=== PATIENT | female | born 1995 | race Caucasian/White ===

== ENCOUNTER 2016-08-16 14:14 | Emergency (ER) | payer MEDICAID ==
--- NOTE | 2016-08-16 14:57 | ER Document Report ---
ED Medical Screen (RME) - General Chief Complaint: Vaginal Bleeding Stated Complaint: VAGINAL BLEEDING Time Seen by Provider: 08/16/16 14:43 Notes: 21-year-old female presenting to the emergency department for some vaginal bleeding. Patient is and her last menstrual period was 07/04/2016. Patient has not had an ultrasound confirming her yet because her insurance does not start until September 10. Patient states that she had some very red blood and yesterday she had some abdominal cramping. Patient states she went through about 4 pads but did not completely soak them. Patient denies any fever or dysuria. Patient is and has a history of asthma. I have greeted and performed a rapid initial assessment of this patient. A comprehensive ED assessment and evaluation of the patient, analysis of test results and completion of the medical decision making process will be conducted by additional ED providers. TRAVEL OUTSIDE OF THE [place] IN LAST 30 DAYS: No - Related Data Allergies/Adverse Reactions: No Known Allergies Allergy (Verified 08/16/16 14:34) Past Medical History Pulmonary Medical History: Reports: Hx Asthma Renal/ Medical History: Denies: Hx Peritoneal Dialysis - Immunizations Immunizations up to date: Yes Hx Diphtheria, Pertussis, Tetanus Vaccination: Yes Physical Exam - Notes Notes: GENERAL: Alert, interacts well. No acute distress. LUNGS: Clear to auscultation bilaterally, no wheezes, rales, or rhonchi. No respiratory distress. HEART: Regular rate and rhythm. No murmurs, gallops, or rubs. ABDOMEN: Soft, non-tender. Course - Laboratory Result Diagrams: 08/16/16 15:00 Laboratory results interpreted by me: 08/16/16 08/16/16 15:00 15:00 Beta HCG, Quant 1084.40 H Urine Protein 30 H Urine Blood LARGE H Ur Leukocyte Esterase TRACE H Scribe Documentation - Scribe Written by Layne:: Layne Chapin, 08/16/2016 15:00 acting as scribe for :: Oren
[2016-08-16 15:14] LABS: ABSOLUTE BASOPHILS # (AUTO) 0.1 10^3/uL (0.0-0.2); ABSOLUTE EOSINOPHILS # (AUTO) 0.1 10^3/uL (0.0-0.6); ABSOLUTE LYMPHOCYTES (AUTO) 1.9 10^3/uL (0.5-4.7); ABSOLUTE MONOCYTES (AUTO) 0.6 10^3/uL (0.1-1.4); BASOPHILS % (AUTO) 0.8 % (0-2); HEMATOCRIT 43.4 % (36.0-47.0); HEMOGLOBIN 14.2 g/dL (12.0-15.5); HGB HCT DIFFERENCE -0.8; LYMPHOCYTES % (AUTO) 24.9 % (13-45); MEAN CORPUSCULAR HEMOGLOBIN 29.9 pg (27.0-33.4); MEAN CORPUSCULAR HGB CONC 32.8 g/dL (32.0-36.0); MEAN CORPUSCULAR VOLUME 91 fl (80-97); MONOCYTES % (AUTO) 7.2 % (3-13); RED BLOOD COUNT 4.76 10^6/uL (3.72-5.28); RED CELL DISTRIBUTION WIDTH 12.8 % (11.5-14.0); SEGMENTED NEUTROPHILS % (AUTO) 65.1 % (42-78); WHITE BLOOD COUNT 7.7 10^3/uL (4.0-10.5)
[2016-08-16 15:21] LABS: AMORPHOUS SEDIMENT,URINE 1+ /HPF; APPEARANCE,URINE TURBID; BILIRUBIN,URINE NEGATIVE (NEGATIVE); GLUCOSE, URINE NEGATIVE (NEGATIVE); KETONES,URINE NEGATIVE (NEGATIVE); LEUKOCYTE ESTERASE,URINE TRACE (NEGATIVE); NITRITE,URINE NEGATIVE (NEGATIVE); PROTEIN,URINE 30 mg/dL (NEGATIVE); URINE SPECIFIC GRAVITY 1.021; UROBILINOGEN,URINE NEGATIVE mg/dL (<2.0)
--- NOTE | 2016-08-16 16:40 | ER Document Report ---
ED GI/ - General Mode of Arrival: Ambulatory Information source: Patient TRAVEL OUTSIDE OF THE [place] IN LAST 30 DAYS: No - HPI Patient complains to provider of: Vaginal bleeding <PRAVIN BAILEY - Last Filed: 08/16/16 21:13> <SHEILA FARAH - Last Filed: 08/16/16 22:48> - General Chief Complaint: Vaginal Bleeding Stated Complaint: VAGINAL BLEEDING Time Seen by Provider: 08/16/16 14:43 Notes: Patient is a 21-year-old female who presents to the emergency department today with complaints of vaginal bleeding for the last 2 days. Patient states this bleeding was initially brown in color however this blood has turned red today. Patient states she has never been in the past. Patient states she last had intercourse 3 days ago, and she noticed the bleeding first the next morning. Patient states she is still having vaginal bleeding currently. Patient states her last menstrual period was 07/08/16. (PRAVIN BAILEY) - Related Data Allergies/Adverse Reactions: No Known Allergies Allergy (Verified 08/16/16 14:34) Past Medical History - General Information source: Patient Last Menstrual Period: 07/08/16 - Social History Smoking Status: Former Smoker Chew tobacco use (# tins/day): No Frequency of alcohol use: None Drug Abuse: None Lives with: Family Family History: Reviewed & Not Pertinent Patient has suicidal ideation: No Patient has homicidal ideation: No Pulmonary Medical History: Reports: Hx Asthma Surgical Hx: Negative - Immunizations Immunizations up to date: Yes Hx Diphtheria, Pertussis, Tetanus Vaccination: Yes <PRAVIN BAILEY - Last Filed: 08/16/16 21:13> Review of Systems - Review of Systems Constitutional: No symptoms reported EENT: No symptoms reported Cardiovascular: No symptoms reported Respiratory: No symptoms reported Gastrointestinal: No symptoms reported Genitourinary: No symptoms reported Female Genitourinary: See HPI, - ?, Vaginal bleeding Musculoskeletal: No symptoms reported Skin: No symptoms reported Hematologic/Lymphatic: No symptoms reported Neurological/Psychological: No symptoms reported -: Yes All other systems reviewed and negative <PRAVIN BAILEY - Last Filed: 08/16/16 21:13> Physical Exam <PRAVIN BAILEY - Last Filed: 08/16/16 21:13> - Vital signs Interpretation: Normal - General General appearance: Appears well, Alert - HEENT Head: Normocephalic, Atraumatic Eyes: Normal Pupils: PERRL - Respiratory Respiratory status: No respiratory distress Chest status: Nontender Breath sounds: Normal Chest palpation: Normal - Cardiovascular Rhythm: Regular Heart sounds: Normal auscultation Murmur: No - Abdominal Inspection: Normal Distension: No distension Bowel sounds: Normal Tenderness: Nontender Organomegaly: No organomegaly - Back Back: Normal, Nontender - Extremities General upper extremity: Normal inspection, Nontender, Normal color, Normal ROM , Normal temperature General lower extremity: Normal inspection, Nontender, Normal color, Normal ROM , Normal temperature, Normal weight bearing. No: Sandip's sign - Neurological Neuro grossly intact: Yes Cognition: Normal Orientation: AAOx4 [place] Coma Scale Eye Opening: Spontaneous [place] Coma Scale Verbal: Oriented [place] Coma Scale Motor: Obeys Commands [place] Coma Scale Total: 15 Speech: Normal Motor strength normal: LUE, RUE, LLE, RLE Sensory: Normal - Psychological Associated symptoms: Normal affect, Normal mood - Skin Skin Temperature: Warm Skin Moisture: Dry Skin Color: Normal <SHEILA FARAH - Last Filed: 08/16/16 22:48> - Vital signs Vitals: Temp Pulse Resp BP Pulse Ox 98.0 F 92 16 103/75 100 08/16/16 18:12 08/16/16 18:12 08/16/16 18:12 08/16/16 18:12 08/16/16 18:12 - Genitourinary Notes: deferred to cath lab tech (SHEILA FARAH) Course - Laboratory Result Diagrams: 08/16/16 15:00 <PRAVIN BAILEY - Last Filed: 08/16/16 21:13> - Laboratory Result Diagrams: 08/16/16 15:00 <SHEILA FARAH - Last Filed: 08/16/16 22:48> - Re-evaluation Re-evalutation: 08/16/16 Patient with early and some mild vaginal bleeding after intercourse. She will follow up with [facility] for exam. Patient states that bleeding has slowed down. No cramping. No RhoGam indicated. Intrauterine . Patient has been given a copy of her ultrasound and blood work. She is to follow-up with [facility] later this week. Understands and agrees with plan. Stable for discharge. (SHEILA FARAH) - Vital Signs Vital signs: Temp Pulse Resp BP Pulse Ox 98.0 F 92 16 103/75 100 08/16/16 18:12 08/16/16 18:12 08/16/16 18:12 08/16/16 18:12 08/16/16 18:12 - Laboratory Laboratory results interpreted by me: 08/16/16 08/16/16 15:00 15:00 Beta HCG, Quant 1084.40 H Urine Protein 30 H Urine Blood LARGE H Ur Leukocyte Esterase TRACE H Discharge <PRAVIN BAILEY - Last Filed: 08/16/16 21:13> <SHEILA FARAH - Last Filed: 08/16/16 22:48> - Discharge Clinical Impression: Vaginal bleeding Qualifiers: Weeks of gestation: less than 8 weeks Qualified Code(s): Z3A.01 - Less than 8 weeks gestation of Condition: Stable Disposition: HOME, SELF-CARE Instructions: Bleeding During Early ([facility]), ([facility]) Forms: Return to Work Referrals: [facility] [Provider Group] - Follow up in 3-5 days Scribe Attestation: 08/16/16 22:48 I personally performed the services described in the documentation, reviewed and edited the documentation which was dictated to the scribe in my presence, and it accurately records my words and actions. (SHEILA FARAH) Scribe Documentation - Scribe Written by Layne:: Layne Sinha, 08/16/2016 1932 acting as scribe for :: Melina <PRAVIN BAILEY - Last Filed: 08/16/16 21:13>
--- NOTE | 2016-08-16 17:29 | RADIOLOGY REPORT (SQ) ---
EXAM DESCRIPTION: U/S OB TRANSVAGINAL W/O DOP COMPLETED DATE/TIME: 08/16/2016 5:20 pm REASON FOR STUDY: Vag bld COMPARISON: None. TECHNIQUE: Transvaginal static and realtime grayscale images acquired of the pelvis. Additional jeramy cted spectral and color Doppler images recorded. All images stored on PACs. bHC.4 LIMITATIONS: None. FINDINGS: UTERUS: No masses. No anomalies. GESTATIONAL SAC: There is a small hypoechoic air within the endometrium which could represent an omayra y gestational sac. Follow-up ultrasound is recommended. YOLK SAC: No. POLE: No. RIGHT ADNEXA: Ovary not identified. No adnexal free fluid. No adnexal masses. LEFT ADNEXA: Normal ovary with normal vascular flow. No adnexal free fluid. No adnexal masses. FREE FLUID: None. OTHER: No other significant finding. IMPRESSION: POSSIBLE EARLY INTRAUTERINE . BHCG LEVEL APPROPRIATE FOR ENDOMETRIAL FINDINGS. CONSIDER F/U BHCG AND/OR ULTRASOUND FOR VERIFICATION AND TO EXCLUDE ECTOPIC . Trimester of : First - 0 to 13 weeks. TECHNICAL DOCUMENTATION: JOB ID: [id number] [employer]- All Rights Reserved
[2016-08-16 18:14] VITALS: BP 103/75
== END 2016-08-16 18:12 | disposition home or self-care (01) ==
LOC: ER 14:14
DX: O46.91 Antepartum hemorrhage, unspecified, first trimester (principal); Z87.891 Personal history of nicotine dependence; Z3A.01 Less than 8 weeks gestation of pregnancy
CPT/HCPCS: 36415; 76817; 81001; 84702; 85025; 86900; 86901; 99284

== ENCOUNTER 2017-05-07 09:30 | Emergency (ER) | payer BC, MEDICAID ==
--- NOTE | 2017-05-07 09:56 | ER Document Report ---
ED General - General Chief Complaint: Back Pain Stated Complaint: BACK PAIN Time Seen by Provider: 05/07/17 09:55 Mode of Arrival: Ambulatory Information source: Patient Notes: Patient is a 21 year old female who presents with right posterior rib pain that started yesterday. states is worse with cough or sneezing, endorses cough for past week. Denies fever, chills, headache, chest pain, SOB, n/v/d. She has not tried any OTC medications or other treatments for this. Endorses smoking weed occasionally but no cigarette smoking. Speaking in full sentences without difficulty. TRAVEL OUTSIDE OF THE [place] IN LAST 30 DAYS: No - Related Data Allergies/Adverse Reactions: No Known Allergies Allergy (Verified 08/16/16 14:34) Past Medical History - General Information source: Patient - Social History Smoking Status: Current Some Day Smoker Drug Abuse: Marijuana Family History: Reviewed & Not Pertinent Pulmonary Medical History: Reports: Hx Asthma Renal/ Medical History: Denies: Hx Peritoneal Dialysis - Immunizations Immunizations up to date: Yes Hx Diphtheria, Pertussis, Tetanus Vaccination: Yes Review of Systems - Review of Systems Constitutional: See HPI EENT: No symptoms reported Cardiovascular: No symptoms reported Respiratory: See HPI Gastrointestinal: No symptoms reported Genitourinary: No symptoms reported Female Genitourinary: No symptoms reported Musculoskeletal: See HPI Skin: No symptoms reported Hematologic/Lymphatic: No symptoms reported Neurological/Psychological: No symptoms reported Physical Exam - Vital signs Vitals: Temp Pulse Resp BP Pulse Ox 98.1 F 74 16 106/67 99 05/07/17 09:37 05/07/17 09:37 05/07/17 09:37 05/07/17 09:37 05/07/17 09:37 - Notes Notes: PHYSICAL EXAM: CONSTITUTIONAL: Alert and oriented, well-appearing and in no acute distress. HENT: Normocephalic, atraumatic. Ear canals without erythema or foreign body, TMs pearly hess with good bony landmarks. Nares clear without erythema, septal hematoma or deviation, airway patent. Oropharynx clear without erythema, tonsilar exudate or malocclusion. Trachea midline. Uvula midline. Moist mucous membranes. EYES: Pupils equal round and reactive to light, EOM intact. Sclera anicteric, conjunctiva are normal. No entrapment. NECK: supple without lymphadenopathy. No midline tenderness or paraspinous muscle spasms. No step-offs or deformities. ROM intact. HEART: Regular rate and rhythm without murmurs. LUNGS: CTAB and equal. No wheezes, rales or rhonchi. Right ribs #7-9 TTP in mid- scapular line without crepitus, deformities, ecchymosis or step-offs. No flail chest. GI: Normactive bowel sounds. Nontender, non-distended. No organomegaly. no CVAT. EXTREMITIES: no bony tenderness, erythema, edema, ecchymosis or deformity. Normal range of motion, no pitting edema. No cyanosis. Cap Refill <3 seconds. NEURO: Cranial nerves grossly intact. Normal sensory/motor exams. PSYCH: Normal mood, normal affect. SKIN: Warm and dry. Normal turgor. No rashes or lesions noted. Course - Re-evaluation Re-evalutation: 05/07/17 09:56 Patient seen and examined. Well hydrated, well appearing, speaking in full sentences without difficulty. VSS, no hypoxia or tachypnea. Exam without evidence of rib fracture, lungs with equal breath sounds bilaterally. Given PO pain medication here, will obtain CXR. 05/07/17 11:24 Images and results reviewed - negative for acute findings; discussed results with patient. Will treat for cough and costochondritis. Low suspicion for pneumothorax, PE, ACS, PNA or other emergent condition at this time. At this time, will discharge with return precautions and follow-up recommendations. Verbal discharge instructions given at the bedside and opportunity for questions given. Medication warnings reviewed. Patient is in agreement with this plan and has verbalized understanding of return precautions and the need for primary care follow-up in the next 24-72 hours. - Vital Signs Vital signs: Temp Pulse Resp BP Pulse Ox 98.1 F 74 16 106/67 99 05/07/17 09:37 05/07/17 09:37 05/07/17 09:37 05/07/17 09:37 05/07/17 09:37 - Diagnostic Test Radiology reviewed: Image reviewed, Reports reviewed Discharge - Discharge Clinical Impression: Viral URI with cough, Costochondritis Condition: Stable Disposition: HOME, SELF-CARE Instructions: Viral Syndrome ([facility]), Oral Narcotic Medication ([facility]) Additional Instructions: Costochondritis Your chest pain is coming from the rib cartilages in the chest wall. This is often caused by subtle straining of the ribs near the breastbone. The strain can occur from a mild injury, coughing or sneezing with a "cold," vigorous vomiting, or even from rib compression while sleeping. Often the pain doesn't begin until a couple of days after the strain. Persons with arthritis are especially prone to this type of pain, due to inflammation of the cartilage joints near the breast bone. But often, there is no clear reason why it happens. Rest from strenuous physical activity. This kind of chest pain is usually made worse by movement of the chest. Depending on the symptoms, we may prescribe medicine for pain and inflammation. Apply gentle warmth to the painful area for 15 minutes every hour or two. You should call contact the doctor immediately if things change. Further evaluation is needed if you develop a fever or cough, if the nature of the pain changes, or if you become short of breath. FOLLOW-UP CARE: If you have been referred to a physician for follow-up care, call the physician s office for an appointment as you were instructed or within the next two days. If you experience worsening or a significant change in your symptoms, notify the physician immediately or return to the Emergency Department at any time for re-evaluation. Prescriptions: Benzonatate [Tessalon Perles 100 mg Capsule] 100 mg PO Q8HP PRN #40 capsule PRN Reason: Tramadol HCl [Ultram] 50 mg PO Q8HP PRN #10 tablet PRN Reason: Ibuprofen [Motrin 600 Mg Tablet] 600 mg PO TID #15 tablet
[2017-05-07] MEDS ORDERED: TRAMADOL HCL 50 MG TABLET PO ONE (10:06)
--- NOTE | 2017-05-07 11:04 | RADIOLOGY REPORT (SQ) ---
EXAM DESCRIPTION: RIBS RIGHT W/PA CHEST COMPLETED DATE/TIME: 05/07/2017 10:57 am REASON FOR STUDY: right rib pain with cough COMPARISON: None. TECHNIQUE: Frontal view of the chest and additional views of the right ribs acquired. NUMBER OF VIEWS: Four view. LIMITATIONS: None. FINDINGS: FRONTAL CXR: No pneumothorax. No pleural effusion. No atelectasis or infiltrates. RIBS: No displaced rib fractures. No lytic or blastic bony lesions. OTHER: No other significant finding. IMPRESSION: NO PNEUMOTHORAX. NO DISPLACED RIB FRACTURES. COMMENT: SITE OF TRAUMA/COMPLAINT MARKED/STAMP COMPLETED: NO. TECHNICAL DOCUMENTATION: JOB ID: [id number] [employer]- All Rights Reserved Reading location - IP/workstation name: [email or web address]
[2017-05-07 11:56] VITALS: BP 114/77
== END 2017-05-07 11:46 | disposition home or self-care (01) ==
LOC: ER 09:30
DX: J06.9 Acute upper respiratory infection, unspecified (principal); B97.89 Other viral agents as the cause of diseases classified elsewhere; M94.0 Chondrocostal junction syndrome [Tietze]; M54.9 Dorsalgia, unspecified; R07.81 Pleurodynia; F12.90 Cannabis use, unspecified, uncomplicated; F17.200 Nicotine dependence, unspecified, uncomplicated
CPT/HCPCS: 99283

== ENCOUNTER 2017-05-19 10:32 | Emergency (ER) | payer BC ==
[2017-05-19] MEDS ORDERED: LIDOCAINE 5% (700 MG) TRANSDERMAL ADH..PATCH TP ONE (11:37)
[2017-05-19] MEDS ORDERED: IPRATROPIUM/ALBUTEROL 0.5-2.5 MG/3 ML AMPUL NEB ONE (11:37)
[2017-05-19] MEDS ORDERED: ACETAMINOPHEN 325 MG TABLET PO ONE (11:38)
--- NOTE | 2017-05-19 11:39 | ER Document Report ---
HPI - HPI Patient complains to provider of: Right side pain Onset: Yesterday Onset/Duration: Sudden Quality of pain: Achy Pain Level: 4 Context: Patient states that she sneezed yesterday and had a sudden right lateral side pain. Patient states since then if she moves or coughs she has increased pain. Patient denies any fever or urinary symptoms. Patient was recently seen for similar pain and treated for an upper respiratory infection on 05/05/2017 and was seen here on 05/07/2017, patient did see her doctor yesterday for this complaint as well was given a prescription for Motrin. Associated Symptoms: Nonproductive cough. denies: Fever Exacerbated by: Movement, Coughing Relieved by: Denies Similar symptoms previously: Yes Recently seen / treated by doctor: Yes - ROS ROS below otherwise negative: Yes Systems Reviewed and Negative: Yes All other systems reviewed and negative - CONSTITUTIONAL Constitutional: DENIES: Fever, Chills - EENT EENT: DENIES: Congestion - RESPIRATORY Respiratory: REPORTS: Coughing. DENIES: Trouble Breathing - GASTROINTESTINAL Gastrointestinal: DENIES: Nausea, Patient vomiting - REPRODUCTIVE Reproductive: DENIES: : - DERM Skin Color: Normal Skin Problems: None Past Medical History - General Information source: Patient - Social History Smoking Status: Current Every Day Smoker Chew tobacco use (# tins/day): No Smoking Education Provided: Yes Frequency of alcohol use: Occasional Drug Abuse: Marijuana Lives with: Family Family History: Reviewed & Not Pertinent Patient has suicidal ideation: No Patient has homicidal ideation: No Pulmonary Medical History: Reports: Hx Asthma Renal/ Medical History: Denies: Hx Peritoneal Dialysis Surgical Hx: Negative - Immunizations Immunizations up to date: Yes Hx Diphtheria, Pertussis, Tetanus Vaccination: Yes Vertical Provider Document - CONSTITUTIONAL Agree With Documented VS: Yes Exam Limitations: No Limitations General Appearance: WD/WN, No Apparent Distress - INFECTION CONTROL TRAVEL OUTSIDE OF THE [place] IN LAST 30 DAYS: No - HEENT HEENT: Atraumatic, Normocephalic - NECK Neck: Normal Inspection, Supple. negative: Lymphadenopathy-Left, Lymphadenopathy-Right - RESPIRATORY Respiratory: No Respiratory Distress, Chest Non-Tender - Right lateral chest wall tenderness, Wheezing - scattered O2 Sat by Pulse Oximetry: 100 - CARDIOVASCULAR Cardiovascular: Regular Rate, Regular Rhythm, No Murmur - GI/ABDOMEN Gastrointestinal: Abdomen Soft, Abdomen Non-Tender, No Organomegaly, Normal Bowel Sounds - BACK Back: CVA Tenderness-Right - MUSCULOSKELETAL/EXTREMETIES Musculoskeletal/Extremeties: KEERTHI UMANA - NEURO Level of Consciousness: Awake, Alert, Appropriate, Confused - DERM Integumentary: Warm, Dry, No Rash Course - Re-evaluation Re-evalutation: 05/19/17 13:11 No evidence of pneumothorax, pneumonia or rib fracture. Patient with reproducible chest wall tenderness with palpation, cough and deep inspiration. Patient not tachycardic nor hypoxic, no concern for PE. No abdominal tenderness , normal LFTs no concern for cholecystitis. will treat patient's asthma exacerbation symptoms and have her to follow-up with her primary doctor for recheck. 05/19/17 13:12 - Vital Signs Vital signs: Temp Pulse Resp BP Pulse Ox 99.1 F 60 16 110/73 100 05/19/17 10:50 05/19/17 10:50 05/19/17 10:50 05/19/17 10:50 05/19/17 10:50 - Laboratory Result Diagrams: 05/19/17 12:20 05/19/17 12:20 Laboratory results interpreted by me: 05/19/17 13:10 Labs- Entire Visit 05/19/17 05/19/17 05/19/17 12:20 12:20 12:20 WBC 6.6 RBC 4.83 Hgb 14.5 Hct 43.5 MCV 90 MCH 30.0 MCHC 33.3 RDW 12.6 Plt Count 224 Seg Neutrophils % 65.8 Lymphocytes % 23.3 Monocytes % 7.5 Eosinophils % 2.3 Basophils % 1.1 Absolute Neutrophils 4.4 Absolute Lymphocytes 1.5 Absolute Monocytes 0.5 Absolute Eosinophils 0.2 Absolute Basophils 0.1 Sodium 139.1 Potassium 4.3 Chloride 105 Carbon Dioxide 26 Anion Gap 8 BUN 8 Creatinine 0.58 Est GFR ( Amer) > 60 Est GFR (Non-Af Amer) > 60 Glucose 74 L Calcium 9.9 Total Bilirubin 0.5 Direct Bilirubin 0.2 Neonat Total Bilirubin Not Reportable Neonat Direct Bilirubin Not Reportable Neonat Indirect Bili Not Reportable AST 15 ALT 19 Alkaline Phosphatase 55 Total Protein 6.8 Albumin 4.5 Lipase 44.2 Serum HCG, Qual NEGATIVE - Diagnostic Test Radiology reviewed: Reports reviewed Discharge - Discharge Clinical Impression: Chest wall pain Asthma exacerbation Qualifiers: Asthma severity: unspecified severity Asthma persistence: unspecified Qualified Code(s): J45.901 - Unspecified asthma with (acute) exacerbation Condition: Stable Disposition: HOME, SELF-CARE Instructions: Asthma ([facility]), Chest Wall Pain ([facility]), Steroid Medication, Warm Packs ([facility]) Additional Instructions: Return immediately for any new or worsening symptoms Followup with your primary care provider, Dr Nicole, call tomorrow to make a followup appointment Use your inhaler as previously prescribed Stop smoking Prescriptions: Cyclobenzaprine HCl [Flexeril 10 Mg Tablet] 10 mg PO TID #10 tablet Prednisone [Deltasone 10 mg Tablet] 10 mg PO ASDIR PRN #21 tablet PRN Reason: Forms: Smoking Cessation Education, Return to Work
--- NOTE | 2017-05-19 12:18 | RADIOLOGY REPORT (SQ) ---
EXAM DESCRIPTION: CHEST PA/LAT COMPLETED DATE/TIME: 05/19/2017 12:04 pm REASON FOR STUDY: r lat rib pain COMPARISON: 05/07/2017. EXAM PARAMETERS: NUMBER OF VIEWS: two views TECHNIQUE: Digital Frontal and Lateral radiographic views of the chest acquired. RADIATION DOSE: NA LIMITATIONS: none FINDINGS: LUNGS AND PLEURA: No opacities, masses or pneumothorax. No pleural effusion. MEDIASTINUM AND HILAR STRUCTURES: No masses or contour abnormalities. HEART AND VASCULAR STRUCTURES: Heart normal size. No evidence for failure. BONES: No acute findings. HARDWARE: None in the chest. OTHER: No other significant finding. IMPRESSION: NO SIGNIFICANT RADIOGRAPHIC FINDING IN THE CHEST. TECHNICAL DOCUMENTATION: JOB ID: [id number] [employer]- All Rights Reserved Reading location - IP/workstation name: [email or web address]
[2017-05-19 12:38] LABS: ABSOLUTE BASOPHILS # (AUTO) 0.1 10^3/uL (0.0-0.2); ABSOLUTE EOSINOPHILS # (AUTO) 0.2 10^3/uL (0.0-0.6); ABSOLUTE LYMPHOCYTES (AUTO) 1.5 10^3/uL (0.5-4.7); ABSOLUTE MONOCYTES (AUTO) 0.5 10^3/uL (0.1-1.4); ABSOLUTE NEUT (AUTO) 4.4 10^3/uL (1.7-8.2); BASOPHILS % (AUTO) 1.1 % (0-2); EOSINOPHILS % (AUTO) 2.3 % (0-6); HEMATOCRIT 43.5 % (36.0-47.0); HEMOGLOBIN 14.5 g/dL (12.0-15.5); LYMPHOCYTES % (AUTO) 23.3 % (13-45); MEAN CORPUSCULAR HGB CONC 33.3 g/dL (32.0-36.0); MEAN CORPUSCULAR VOLUME 90 fl (80-97); MONOCYTES % (AUTO) 7.5 % (3-13); PLATELET COUNT 224 10^3/uL (150-450); RED BLOOD COUNT 4.83 10^6/uL (3.72-5.28); RED CELL DISTRIBUTION WIDTH 12.6 % (11.5-14.0); SEGMENTED NEUTROPHILS % (AUTO) 65.8 % (42-78); TOTAL CELLS COUNTED % (AUTO) 100 %; WHITE BLOOD COUNT 6.6 10^3/uL (4.0-10.5)
[2017-05-19 12:59] LABS: ALANINE AMINOTRANSFERASE 19 U/L (9-52); ALBUMIN 4.5 g/dL (3.5-5.0); ALKALINE PHOSPHATASE 55 U/L (38-126); ANION GAP 8 (5-19); ASPARTATE AMINO TRANSFERASE 15 U/L (14-36); BILIRUBIN,DIRECT 0.2 mg/dL (0.0-0.4); BILIRUBIN,TOTAL 0.5 mg/dL (0.2-1.3); BLOOD UREA NITROGEN 8 mg/dL (7-20); CALCIUM 9.9 mg/dL (8.4-10.2); CARBON DIOXIDE 26 mmol/L (22-30); CHLORIDE 105 mmol/L (98-107); GLUCOSE 74 mg/dL (75-110); LIPASE 44.2 U/L (23-300); POTASSIUM 4.3 mmol/L (3.6-5.0); SODIUM 139.1 mmol/L (137-145); TOTAL PROTEIN 6.8 g/dL (6.3-8.2)
[2017-05-19 13:37] VITALS: BP 120/68
== END 2017-05-19 13:35 | disposition home or self-care (01) ==
LOC: ER 10:32
DX: R07.89 Other chest pain (principal); J45.901 Unspecified asthma with (acute) exacerbation; F17.200 Nicotine dependence, unspecified, uncomplicated
CPT/HCPCS: 94640; 99283; 36415; 83690; 84703; 85025; 80053; 71046; J7620

== ENCOUNTER 2017-11-14 16:14 | Emergency (ER) | payer BC, OTHER ==
--- NOTE | 2017-11-14 18:21 | ER Document Report ---
ED General - General Chief Complaint: Dizziness Stated Complaint: DIZZINESS Time Seen by Provider: 11/14/17 18:15 Notes: Patient is a 22-year-old female that is 6 weeks gravid that presents to the emergency department for chief complaint of nausea, vomiting and lightheadedness. Patient states she has been having these symptoms for several days now, without improvement, she has had multiple episodes of vomiting and nausea, denies any abdominal or pelvic pain, denies any vaginal discharge or bleeding. She states her first day of her last menstrual period was October 01. She does have an appointment coming up later this month, with CLIENT SOLUTIONS MANAGER. She does not recall the name of the nutrition professor. She denies noting any fevers, chills, dysuria, hematuria, chest pain, shortness of breath or difficulty breathing. Past Medical History: Denies chronic medical conditions Past Surgical History: Denies surgical history Social History: Denies current tobacco, alcohol or drug use. Family History: Reviewed and noncontributory for presenting illness Allergies: Reviewed, see documented allergy list. REVIEW OF SYSTEMS: Unless otherwise stated in this report the patient's positive and negative responses for review of systems for constitutional, eyes, ENT, cardiovascular, respiratory, gastrointestinal, neurological, genitourinary, musculoskeletal, and integumentary systems and related systems to the presenting problem are either as stated in the HPI or were not pertinent or were negative for the symptoms and/or complaints related to the presenting medical problem. PHYSICAL EXAMINATION: Vital signs reviewed, nursing noted reviewed. GENERAL: Well-appearing, well-nourished and in no acute distress. HEAD: Atraumatic, normocephalic. EYES: Eyes appear normal, extraocular movements intact, sclera anicteric, conjunctiva are normal. TM appear normal bilaterally. ENT: nares patent, oropharynx clear without exudates. Moist mucous membranes. NECK: Normal range of motion, supple without lymphadenopathy LUNGS: Breath sounds clear to auscultation bilaterally and equal. No wheezes rales or rhonchi. HEART: Regular rate and rhythm without murmurs ABDOMEN: Soft, nontender, normoactive bowel sounds. No rebound, guarding, or rigidity. No masses appreciated. EXTREMITIES: Nontender, good range of motion, no pitting or edema. NEUROLOGICAL: No focal neurological deficits. Moves all extremities spontaneously Motor and sensory grossly intact on exam. PSYCH: Normal mood, normal affect. SKIN: Warm, Dry, normal turgor, no rashes or lesions noted on exposed skin TRAVEL OUTSIDE OF THE [place] IN LAST 30 DAYS: No COUNTRY TRAVELED TO/FROM: [place] - Related Data Allergies/Adverse Reactions: No Known Allergies Allergy (Verified 11/14/17 18:13) Past Medical History - Social History Smoking Status: Never Smoker Chew tobacco use (# tins/day): No Frequency of alcohol use: None Drug Abuse: None Family History: Reviewed & Not Pertinent Patient has suicidal ideation: No Patient has homicidal ideation: No Pulmonary Medical History: Reports: Hx Asthma Renal/ Medical History: Denies: Hx Peritoneal Dialysis - Immunizations Immunizations up to date: Yes Hx Diphtheria, Pertussis, Tetanus Vaccination: Yes Review of Systems - Review of Systems Notes: Dictated Physical Exam - Vital signs Vitals: Temp Pulse Resp BP Pulse Ox 98.5 F 71 16 110/68 99 11/14/17 17:10 11/14/17 17:10 11/14/17 17:10 11/14/17 17:10 11/14/17 17:10 - Notes Notes: Dictated Course - Re-evaluation Re-evalutation: 11/14/17 18:24 Patient seen and examined vital signs reviewed. Laboratory data ordered as appropriate for the patient's presenting symptoms and complaint, with consideration of any critical or life threatening conditions that may be associated with their obtained history and exam as noted above. Patient was treated with IV fluids, Phenergan Results were reviewed when available and demonstrated evidence of UA The patient was re-evaluated and was feeling much improved. Evaluation was most consistent with morning sickness related to Results were discussed with the patient at this point, after careful consideration I feel that that patient can be discharged from the emergency department, the patient was educated treatments and reasons to return to the emergency department based on their presumed diagnosis as noted above, they were advised to followup with a primary care physician in 2-3 days. Patient was agreeable to plan of care. Patient given prescription for Phenergan to take every 8 hours as needed for nausea and vomiting, and to call her COPPER PLATER for scheduling earlier appointment if needed. *Note is created using voice recognition software and may contain spelling, syntax or grammatical errors. 11/14/17 23:57 - Vital Signs Vital signs: Temp Pulse Resp BP Pulse Ox 99.0 F 78 16 118/29 L 100 11/14/17 21:13 11/14/17 21:13 11/14/17 21:13 11/14/17 21:13 11/14/17 21:13 - Laboratory Laboratory results interpreted by me: 11/14/17 20:10 Urine Ketones 80 H Ur Leukocyte Esterase MODERATE H Discharge - Discharge Clinical Impression: UTI (urinary tract infection) Qualifiers: Urinary tract infection type: site unspecified Hematuria presence: without hematuria Qualified Code(s): N39.0 - Urinary tract infection, site not specified Nausea and vomiting Qualifiers: Vomiting type: unspecified Vomiting Intractability: non-intractable Qualified Code(s): R11.2 - Nausea with vomiting, unspecified Condition: Stable Disposition: HOME, SELF-CARE Instructions: Urinary Tract Infection ([facility]) Additional Instructions: Please return to the emergency department if you have any worsening, or concern of your symptoms. Please return to the emergency department if you develop chest pain, difficulty breathing, severe abdominal pain, or ongoing vomiting. Please follow-up with your primary care physician in 2-3 days and any other recommended physicians. If prescribed, take all medications as directed. If you have any questions or concerns do not hesitate to return the emergency department for evaluation. Please call for an appointment with your CLIENT SOLUTIONS MANAGER, tomorrow morning, to try to set up an earlier appointment. Prescriptions: Cephalexin Monohydrate [Keflex 500 mg Capsule] 500 mg PO BID 5 Days #10 capsule Promethazine HCl [Phenergan 25 mg Tablet] 1 tab PO Q8 #15 tablet
[2017-11-14] MEDS ORDERED: NORMAL SALINE 1000 ML 1,000 ML IV ONE (18:22)
[2017-11-14] MEDS ORDERED: PROMETHAZINE HCL INJ 25 MG/1 ML VIAL IV ONE (18:22)
[2017-11-14 20:56] LABS: APPEARANCE,URINE CLOUDY; BILIRUBIN,URINE NEGATIVE (NEGATIVE); COLOR,URINE YELLOW; GLUCOSE, URINE NEGATIVE (NEGATIVE); KETONES,URINE 80 mg/dL (NEGATIVE); LEUKOCYTE ESTERASE,URINE MODERATE (NEGATIVE); NITRITE,URINE NEGATIVE (NEGATIVE); PROTEIN,URINE NEGATIVE (NEGATIVE); URINE SPECIFIC GRAVITY 1.016; UROBILINOGEN,URINE NEGATIVE mg/dL (<2.0)
[2017-11-14 21:14] VITALS: BP 118/29
== END 2017-11-14 21:14 | disposition home or self-care (01) ==
LOC: ER 16:14
DX: O23.41 Unspecified infection of urinary tract in pregnancy, first trimester (principal); O21.0 Mild hyperemesis gravidarum; Z3A.01 Less than 8 weeks gestation of pregnancy
CPT/HCPCS: 99284; 96361; 96374; 81001; J2550; J7030

== ENCOUNTER 2018-04-26 16:25 | Outpatient (CLI) | payer MEDICAID ==
[2018-04-26 17:31] LABS: ABSOLUTE BASOPHILS # (AUTO) 0.1 10^3/uL (0.0-0.2); ABSOLUTE EOSINOPHILS # (AUTO) 0.2 10^3/uL (0.0-0.6); ABSOLUTE NEUT (AUTO) 11.4 10^3/uL (1.7-8.2); BASOPHILS % (AUTO) 0.6 % (0-2); EOSINOPHILS % (AUTO) 1.4 % (0-6); HEMATOCRIT 31.9 % (36.0-47.0); LYMPHOCYTES % (AUTO) 13.4 % (13-45); MEAN CORPUSCULAR HEMOGLOBIN 29.8 pg (27.0-33.4); MEAN CORPUSCULAR HGB CONC 34.5 g/dL (32.0-36.0); MEAN CORPUSCULAR VOLUME 86 fl (80-97); MONOCYTES % (AUTO) 6.7 % (3-13); PLATELET COUNT 230 10^3/uL (150-450); RED CELL DISTRIBUTION WIDTH 12.5 % (11.5-14.0); SEGMENTED NEUTROPHILS % (AUTO) 77.9 % (42-78); TOTAL CELLS COUNTED % (AUTO) 100 %; WHITE BLOOD COUNT 14.7 10^3/uL (4.0-10.5)
[2018-04-26 17:42] LABS: URINE AMPHETAMINES SCREEN NEGATIVE; URINE BARBITURATES SCREEN NEGATIVE; URINE BENZODIAZEPINES SCREEN NEGATIVE; URINE COCAINE SCREEN NEGATIVE; URINE MARIJUANA (THC) SCREEN NEGATIVE; URINE METHADONE SCREEN NEGATIVE; URINE PHENCYCLIDINE SCREEN NEGATIVE
--- NOTE | 2018-04-26 19:00 | RADIOLOGY REPORT (SQ) ---
EXAM DESCRIPTION: U/S OB LIMITED COMPLETED DATE/TIME: 04/26/2018 6:49 pm REASON FOR STUDY: previa, known; vaginal bleeding COMPARISON: None. TECHNIQUE: Limited transvaginal grayscale ultrasound for evaluation of specific requested obstetrica l parameters. LIMITATIONS: None. FINDINGS: CERVICAL LENGTH: 3.7 cm. Closed. JACKELINE: 12.3 cm. FHR: 157 beats per minute. PRESENTATION: Cephalic. PLACENTA: Posterior previa. ANATOMY: Not assessed OTHER: No other significant findings. IMPRESSION: LIMITED OBSTETRICAL ULTRASOUND WITH MEASURED PARAMETERS DELINEATED ABOVE. Trimester of : Third trimester - 28 weeks to delivery. TECHNICAL DOCUMENTATION: JOB ID: [id number] [employer]- All Rights Reserved Reading location - IP/workstation name: [email or web address]
[2018-04-26] MEDS ORDERED: BETAMET ACET/BETAMET NA INJ 6 MG/1 ML IM SCH (19:15)
[2018-04-26] MEDS ORDERED: BETAMET ACET/BETAMET NA INJ 6 MG/1 ML ONE (19:20)
--- NOTE | 2018-04-26 19:31 | L&D Progress Notes ---
PROGRESS NOTES Datetime Report Generated by CPN: 04/26/2018 19:31 PROGRESS NOTE Impression Other: vaginal bleeding Procedures- Other: monitor Plan Other: US Vital Signs : Reviewed; Within Normal Limits Comment: Pt receives PNC at [facility] and has a previa. She started bleedig this afternoon. She denies intercourse but was not told to abstain. She states that this is the first time that she had bleeding. She had a small amt on her pad. Pt underwent an US that showed a complete previa and her CL is 3.7 cm. Betamethasone 12 mg IM given. If her bleeding subsides, she can go home and return tomorrow for the second dose. I reiterated that fact that she is not to put anything into her vagina during this . She is Rh Positive. FETUS A FHR - Baseline: 130-140s Accelerations: 15X15 Decelerations: None FHR Category: Category I : 30.5 SIGNATURE SIGNATURE: [id number] Signature: with User ID: [email or web address]
== END 2018-04-26 21:05 | disposition home or self-care (01) ==
LOC: LC 16:25
PROVIDERS: ATTEND Obstetrics & Gynecology
PROC: 4A1HXCZ Monitoring of Products of Conception, Cardiac Rate, External Approach (ICD-10-PCS; principal; 2018-04-26)
DX: O44.13 Complete placenta previa with hemorrhage, third trimester (principal); Z3A.30 30 weeks gestation of pregnancy
CPT/HCPCS: 59899; 86900; 86901; 36415; 86850; 85025; 80307; 76815; J0702

== ENCOUNTER 2018-04-27 19:23 | Outpatient (CLI) | payer MEDICAID ==
[2018-04-27] MEDS ORDERED: BETAMET ACET/BETAMET NA INJ 6 MG/1 ML ONE (19:27)
[2018-04-27] MEDS ORDERED: BETAMET ACET/BETAMET NA INJ 6 MG/1 ML IM ONE (19:29)
== END 2018-04-27 19:33 | disposition home or self-care (01) ==
LOC: LC 19:23
PROVIDERS: ATTEND Obstetrics & Gynecology Gynecology
PROC: 4A1HXCZ Monitoring of Products of Conception, Cardiac Rate, External Approach (ICD-10-PCS; principal; 2018-04-27)
DX: O46.93 Antepartum hemorrhage, unspecified, third trimester (principal); Z3A.30 30 weeks gestation of pregnancy
CPT/HCPCS: 59025; J0702

== ENCOUNTER 2018-05-02 11:22 | Emergency (ER) | payer MEDICAID ==
[2018-05-02 11:41] VITALS: BP 125/74
--- NOTE | 2018-05-02 12:04 | ER Document Report ---
ED ENT - General Chief Complaint: Sore Throat Stated Complaint: SORE THROAT Time Seen by Provider: 05/02/18 11:50 Primary Care Provider: NAVARRO VILLEGAS MD [Primary Care Provider] - Follow up as needed Notes: 22-year-old female presents to ED for complaint of cough congestion sore throat since Monday. She states she does not remember any fevers. She states she was sent over for strep test. Patient is alert oriented respirations regular and unlabored speaking in full sentences. She is 31 weeks . Patient was offered but refused Tylenol at this time. Strep test was completed and sent will review results with patient. TRAVEL OUTSIDE OF THE [place] IN LAST 30 DAYS: No COUNTRY TRAVELED TO/FROM: [facility], [facility] - [facility] Onset: Other - Monday Onset/Duration: Intermittent Quality of pain: Sharp Severity: Moderate Pain Level: 4 Location of pain: Nose, Sinus, Throat Associated symptoms: Congestion, Cough, Runny nose, Sinus pain, Sinus drainage, Sore throat. denies: Fever Similar symptoms previously: Yes Recently seen / treated by doctor: Yes - Related Data Allergies/Adverse Reactions: No Known Allergies Allergy (Verified 05/02/18 11:22) Past Medical History - General Information source: Patient - Social History Smoking Status: Never Smoker Frequency of alcohol use: None Drug Abuse: None Lives with: Alone Family History: Reviewed & Not Pertinent Patient has suicidal ideation: No Patient has homicidal ideation: No - Past Medical History Cardiac Medical History: Reports: None Pulmonary Medical History: Reports: Hx Asthma EENT Medical History: Reports: None Neurological Medical History: Reports: None Endocrine Medical History: Reports: None Renal/ Medical History: Reports: None Malignancy Medical History: Reports: None GI Medical History: Reports: None Musculoskeletal Medical History: Reports None Skin Medical History: Reports None Psychiatric Medical History: Reports: None Traumatic Medical History: Reports: None Infectious Medical History: Reports: None Surgical Hx: Negative Past Surgical History: Reports: None - Immunizations Immunizations up to date: Yes Hx Diphtheria, Pertussis, Tetanus Vaccination: Yes Review of Systems - Review of Systems Constitutional: No symptoms reported EENT: Nose congestion, Nose discharge, Sinus pressure, Sinus discharge, Throat pain Cardiovascular: No symptoms reported Respiratory: Cough Gastrointestinal: No symptoms reported Genitourinary: No symptoms reported Female Genitourinary: No symptoms reported Musculoskeletal: No symptoms reported Skin: No symptoms reported Hematologic/Lymphatic: No symptoms reported Neurological/Psychological: No symptoms reported Physical Exam - Vital signs Vitals: Temp Pulse Resp BP Pulse Ox 99.9 F 110 H 16 125/74 97 05/02/18 11:36 05/02/18 11:36 05/02/18 11:36 05/02/18 11:36 05/02/18 11:36 Interpretation: Normal - General General appearance: Appears well, Alert - HEENT Head: Normocephalic, Atraumatic Eyes: Normal Pupils: PERRL Ears: Normal External canal: Normal Tympanic membrane: Normal Sinus: Normal Nasal: Purulent discharge, Swelling Mouth/Lips: Normal Mucous membranes: Normal Pharynx: Erythema, Post nasal drainage. No: Exudate, Tonsillar hypertrophy Neck: Normal - Respiratory Respiratory status: No respiratory distress Chest status: Nontender Breath sounds: Nonproductive cough Chest palpation: Normal - Cardiovascular Rhythm: Regular Heart sounds: Normal auscultation Murmur: No - Abdominal Inspection: Normal Distension: No distension Bowel sounds: Normal Tenderness: Nontender Organomegaly: No organomegaly - Back Back: Normal, Nontender - Extremities General upper extremity: Normal inspection, Nontender, Normal color, Normal ROM, Normal temperature General lower extremity: Normal inspection, Nontender, Normal color, Normal ROM, Normal temperature, Normal weight bearing. No: Sandip's sign - Neurological Neuro grossly intact: Yes Cognition: Normal Orientation: AAOx4 [place] Coma Scale Eye Opening: Spontaneous [place] Coma Scale Verbal: Oriented [place] Coma Scale Motor: Obeys Commands [place] Coma Scale Total: 15 Speech: Normal Motor strength normal: LUE, RUE, LLE, RLE Sensory: Normal - Psychological Associated symptoms: Normal affect, Normal mood - Skin Skin Temperature: Warm Skin Moisture: Dry Skin Color: Normal Course - Re-evaluation Re-evalutation: 05/02/18 13:29 Went to discuss lab results with patient and I could not find her in the modified waiting room. I had the techs go to the other waiting rooms and outside and no one could find the patient. The nurse attempted to call the patient and she did not answer her phone. Patient has eloped. Patient strep test was negative. Her assessment was consistent with an upper respiratory infection and sore throat. - Vital Signs Vital signs: Temp Pulse Resp BP Pulse Ox 99.9 F 110 H 16 125/74 97 05/02/18 11:36 05/02/18 11:36 05/02/18 11:36 05/02/18 11:36 05/02/18 11:36 Discharge - Discharge Clinical Impression: Sore throat (viral) URI (upper respiratory infection) Qualifiers: URI type: unspecified viral URI Qualified Code(s): J06.9 - Acute upper respiratory infection, unspecified Disposition: ELOPED Referrals: NAVARRO VILLEGAS MD [Primary Care Provider] - Follow up as needed
== END 2018-05-02 13:27 | disposition left against medical advice (07) ==
LOC: ER 11:22
DX: O99.513 Diseases of the respiratory system complicating pregnancy, third trimester (principal); J02.8 Acute pharyngitis due to other specified organisms; B97.89 Other viral agents as the cause of diseases classified elsewhere; J45.909 Unspecified asthma, uncomplicated; J34.89 Other specified disorders of nose and nasal sinuses; O26.893 Other specified pregnancy related conditions, third trimester; R05 Cough; R09.81 Nasal congestion; R09.82 Postnasal drip; Z3A.31 31 weeks gestation of pregnancy
CPT/HCPCS: 87070; 87880; 99281

== ENCOUNTER 2018-05-17 17:55 | Outpatient (CLI) | payer MEDICAID ==
[2018-05-17 18:40] LABS: APPEARANCE,URINE CLOUDY; BILIRUBIN,URINE NEGATIVE (NEGATIVE); COLOR,URINE YELLOW; GLUCOSE, URINE NEGATIVE (NEGATIVE); KETONES,URINE NEGATIVE (NEGATIVE); LEUKOCYTE ESTERASE,URINE LARGE (NEGATIVE); NITRITE,URINE NEGATIVE (NEGATIVE); PROTEIN,URINE NEGATIVE (NEGATIVE); URINE SPECIFIC GRAVITY 1.017; UROBILINOGEN,URINE NEGATIVE mg/dL (<2.0)
--- NOTE | 2018-05-17 18:53 | Non Stress Test Report ---
Non Stress Test Datetime Report Generated by CPN: 05/17/2018 18:53 DEMOGRAPHIC EGA NST: 33.1 INDICATION Indication for Study: Ordered by Provider MONITORING Monitor Explained: Monitor Explained; Test Explained; Patient Verbalized Understanding Time on Monitor: 05/17/2018 18:29 Time off Monitor: 05/17/2018 18:50 NST Duration: 21 NST INTERVENTIONS NST Interventions: PO Hydration; Reposition Patient Physician Notified NST: Hart Physician Notified NST: Dr Hart BABY A: [id number] BABY A Movement : Present Contraction Frequency : denies FHR Baseline : 140 Accelerations : 15X15 Decelerations : None Variability : Moderate 6-25bpm NST Review: Meets Criteria for Reactive NST NST Review and Verified By : SHERIDAN Villagomez Results: Reactive NST REPORT Report Trigger: Send Report
[2018-05-17 19:01] LABS: URINE AMPHETAMINES SCREEN NEGATIVE; URINE BARBITURATES SCREEN NEGATIVE; URINE BENZODIAZEPINES SCREEN NEGATIVE; URINE COCAINE SCREEN NEGATIVE; URINE MARIJUANA (THC) SCREEN NEGATIVE; URINE METHADONE SCREEN NEGATIVE; URINE PHENCYCLIDINE SCREEN NEGATIVE
== END 2018-05-17 19:02 | disposition home or self-care (01) ==
LOC: LC 17:55
PROVIDERS: ATTEND Obstetrics & Gynecology Gynecology
PROC: 4A1HXCZ Monitoring of Products of Conception, Cardiac Rate, External Approach (ICD-10-PCS; principal; 2018-05-17)
DX: Z36.89 Encounter for other specified antenatal screening (principal)
CPT/HCPCS: 59025; 80307; 81001; 84112

== ENCOUNTER 2018-05-19 01:24 | Observation (INO) | payer MEDICAID ==
[2018-05-19 01:50] LABS: APPEARANCE,URINE CLEAR; BILIRUBIN,URINE NEGATIVE (NEGATIVE); COLOR,URINE STRAW; GLUCOSE, URINE NEGATIVE (NEGATIVE); KETONES,URINE NEGATIVE (NEGATIVE); LEUKOCYTE ESTERASE,URINE NEGATIVE (NEGATIVE); NITRITE,URINE NEGATIVE (NEGATIVE); PROTEIN,URINE NEGATIVE (NEGATIVE); URINE SPECIFIC GRAVITY 1.005; UROBILINOGEN,URINE NEGATIVE mg/dL (<2.0)
[2018-05-19 02:09] LABS: URINE AMPHETAMINES SCREEN NEGATIVE; URINE BARBITURATES SCREEN NEGATIVE; URINE BENZODIAZEPINES SCREEN NEGATIVE; URINE COCAINE SCREEN NEGATIVE; URINE MARIJUANA (THC) SCREEN NEGATIVE; URINE METHADONE SCREEN NEGATIVE; URINE PHENCYCLIDINE SCREEN NEGATIVE
--- NOTE | 2018-05-19 03:09 | RADIOLOGY REPORT (SQ) ---
EXAM DESCRIPTION: US LIMITED COMPLETED DATE/TME: 05/19/2018 01:51 CLINICAL HISTORY: 22 years, Female, cervical length, placental status r/o abruption COMPARISON: 04/26/2018 ultrasound TECHNIQUE: Limited third trimester ultrasound LIMITATIONS: None. FINDINGS: Single, live intrauterine gestation in the cephalic presentation. Cervical length is 3.5 cm. The placenta is low-lying with evidence of previa. Heterogeneous echotexture to the placenta. There is complex fluid surrounding the placenta, concerning for areas of hemorrhage and placental abruption. Internal areas of cystic change with the placenta are also present. Current gestational age is 34 weeks 0 days. Heart tones obtained at 133 bpm. Amniotic fluid index 15.1 cm. IMPRESSION: Findings concerning for placental abruption, as above. Abnormal appearance to the placenta with areas of adjacent heterogeneous signal for which periplacental hemorrhage/hematoma is not excluded. Single, live intrauterine gestation with current gestational age 34 weeks 0 days. Cervical length 3.5 cm copyright 2010 [employer]- All Rights Reserved
--- NOTE | 2018-05-19 03:54 | L&D Progress Notes ---
PROGRESS NOTES Datetime Report Generated by CPN: 05/19/2018 03:54 PROGRESS NOTE Impression Other: vaginal bleeding Procedures- Other: monitor Plan Other: US Vital Signs : Reviewed; Within Normal Limits Comment: Known posterior previa presented to L_D c/o vaginal bleeding after going bowling. She saw blood in the toilet. Now, only a little with wiping. She has had some bleeding before. She has been employing strict pelvic rest. She had steroids x 2, two weeks ago. US shows poss abruption. Radiology suggesting an MRI to clarify. Will place and IV and type and screen. No bleeding currently. Will OBV and try to get MRI tomorrow. Pt is agreeable to this plan, VAGINAL EXAM Contractions: rare LAST VAGINAL EXAM-NURSING Contractions: with uterine irritability noted Contractions: with uterine irritability noted MEMBRANES Membranes: Intact FETUS A FHR - Baseline: 120-130s Monitoring: External US Variability: Moderate 6-25bpm Accelerations: 15X15 Decelerations: None FHR Category: Category III : 33.3 SIGNATURE SIGNATURE: [id number];[id number] SIGNATURE: [id number];[id number] Signature: with User ID: [email or web address]
[2018-05-19] MEDS: RINGERS SOLUTION,LACTATED 1,000 ML IV PRN ×2 (04:00→06:44)
[2018-05-19 05:38] LABS: ABSOLUTE EOSINOPHILS # (AUTO) 0.1 10^3/uL (0.0-0.6); ABSOLUTE LYMPHOCYTES (AUTO) 1.7 10^3/uL (0.5-4.7); ABSOLUTE MONOCYTES (AUTO) 0.9 10^3/uL (0.1-1.4); ABSOLUTE NEUT (AUTO) 8.2 10^3/uL (1.7-8.2); BASOPHILS % (AUTO) 0.4 % (0-2); EOSINOPHILS % (AUTO) 1.4 % (0-6); HEMATOCRIT 29.1 % (36.0-47.0); LYMPHOCYTES % (AUTO) 15.7 % (13-45); MEAN CORPUSCULAR HEMOGLOBIN 29.1 pg (27.0-33.4); MEAN CORPUSCULAR HGB CONC 34.3 g/dL (32.0-36.0); MEAN CORPUSCULAR VOLUME 85 fl (80-97); MONOCYTES % (AUTO) 7.9 % (3-13); PLATELET COUNT 201 10^3/uL (150-450); RED BLOOD COUNT 3.44 10^6/uL (3.72-5.28); RED CELL DISTRIBUTION WIDTH 13.7 % (11.5-14.0); SEGMENTED NEUTROPHILS % (AUTO) 74.6 % (42-78); TOTAL CELLS COUNTED % (AUTO) 100 %; WHITE BLOOD COUNT 10.9 10^3/uL (4.0-10.5)
--- NOTE | 2018-05-19 10:03 | RADIOLOGY REPORT (SQ) ---
EXAM DESCRIPTION: MRI ABDOMEN WITHOUT COMPLETED DATE/TIME: 05/19/2018 9:12 am REASON FOR STUDY: bleeding,suspicious for abruption on US, 33wk preg COMPARISON: None. TECHNIQUE: Noncontrast T1 and T2 weighted sequences through lower abdomen and pelvis. Images saved to PACs. FINDINGS: Study is limited by motion artifact. Single intrauterine gestation with posterior previa. Dilated vessels along the interface between the placenta and myometrium. No evidence of abruption. IMPRESSION: No evidence of abruption. TECHNICAL DOCUMENTATION: JOB ID: [id number] [employer]- All Rights Reserved Reading location - IP/workstation name: [email or web address]
--- NOTE | 2018-05-19 10:23 | L&D Progress Notes ---
PROGRESS NOTES Datetime Report Generated by CPN: 05/19/2018 10:23 PROGRESS NOTE Impression Other: vaginal bleeding w/known complete previa Procedures: Ultrasound Procedures- Other: MRI Plan: Continue Present Management Informed Consent Obtained: Risks, Benefits and Alternatives Discussed Vital Signs : Within Normal Limits Comment: Pt returned from MRI, with report neg for abruption. FHR has been Cat 1 w/no reg ctx. Plan for d/c home. Discussed extensively no strenous activities, no intercourse; return to L_D w/vaginal bleeding, ctx, decreased FM or pain. Pt and her mother both voiced understanding, all questions answered; has an OB appt on Monday. VAGINAL EXAM Contractions: Patient denies cramping Contractions: Patient denies cramping Contractions: abdomen soft, pad shows no further bleeding FETUS A FHR - Baseline: 140s Monitoring: External US Accelerations: 15X15 Decelerations: None FETUS C SIGNATURE: [id number];[id number] Signature: with User ID: [email or web address]
--- NOTE | 2018-05-19 10:39 | Non Stress Test Report ---
Non Stress Test Datetime Report Generated by CPN: 05/19/2018 10:39 DEMOGRAPHIC Test Number: 2 EGA NST: 33.3 INDICATION Indication for Study: Ordered by Provider Indication for Study (NST) Other: r/o abruption MONITORING Monitor Explained: Monitor Explained; Test Explained; Patient Verbalized Understanding Time on Monitor: 05/19/2018 09:50 Time off Monitor: 05/19/2018 10:13 NST Duration: 23 NST INTERVENTIONS NST Interventions: PO Hydration; IV Fluids; Reposition Patient Physician Notified NST: Forrest BABY A: [id number] BABY A Movement : Present Contraction Frequency : Uterine Irritability FHR Baseline : 145 Accelerations : 15X15 Decelerations : None Variability : Moderate 6-25bpm NST Review: Meets Criteria for Reactive NST NST Review and Verified By : SHERIDAN Mehta Results: Reactive NST REPORT Report Trigger: Send Report
== END 2018-05-19 10:26 | disposition home or self-care (01) ==
LOC: LC 01:24 → LR 03:41
PROVIDERS: ADMIT Obstetrics & Gynecology; ATTEND Obstetrics & Gynecology
PROC: 4A0HXCZ Measurement of Products of Conception, Cardiac Rate, External Approach (ICD-10-PCS; principal; 2018-05-19)
DX: O44.13 Complete placenta previa with hemorrhage, third trimester (principal); Z3A.33 33 weeks gestation of pregnancy
CPT/HCPCS: 59025; 94760; 86900; 86901; 36415; 86850; 85025; 86592; 81001; 80307; 74181; 76815; G0378; G0379